=== PATIENT | female | born 1960 | race Hispanic/Latino ===

== ENCOUNTER 2017-09-17 07:51 | Day surgery (SDC) | payer OTHER ==
[~2017-09-17 07:51] MED LIST: ANCEF/STERILE WATER 2 GM/20 ML IV NR; LACTATED RINGERS 1,000 ML IV SCH; VERSED IV NR
[2017-09-17] MEDS ORDERED: NACL BACTERIOSTATIC INFILTRATI ONE (09:16)
--- NOTE | 2017-09-17 09:27 | Anesthesia Consultation ---
Anesthesia Consult and Med Hx Date of service: 09/17/17 - Airway Anesthetic Teeth Evaluation: Good ROM Head & Neck: Inadequate (hardware in the cervical region) Mental/Hyoid Distance: Adequate Mallampati Class: Class II Intubation Access Assessment: Possibly Difficult - Pulmonary Exam CTA: Yes - Cardiac Exam Cardiac Exam: RRR - Pre-Operative Health Status ASA Pre-Surgery Classification: ASA3 Proposed Anesthetic Plan: General - Pulmonary Hx Smoking: No Hx Asthma: Yes (INHALER PRN- RARE USE) Hx Sleep Apnea: No (IRIS PRE SCREEN LOW RISK) - Cardiovascular System Hx Hypertension: Yes (X 7 YRS) - Central Nervous System Hx Seizures: Yes (LAST SEIZURE 2016 , NO MEDS-STATES DUE TO ANXIETY) 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
[2017-09-17] MEDS ORDERED: XYLOCAINE 1% 20 mL INFILTRATI NR (09:30)
[2017-09-17] MEDS ORDERED: MARCAINE 0.5% 30 ML INFILTRATI ONE ×2 (09:42→10:46)
[2017-09-17] MEDS ORDERED: DECADRON ONE ×3 (09:42→13:02)
[2017-09-17] MEDS ORDERED: SUBLIMAZE IV NR (10:00)
[2017-09-17] MEDS ORDERED: ZOFRAN IV PRN (10:00)
[2017-09-17] MEDS ORDERED: MARCAINE 0.5% INFILTRATI NR (10:00)
[2017-09-17] MEDS ORDERED: NACL P/F VIAL (10 ML) INFILTRATI NR (10:00)
[2017-09-17] MEDS ORDERED: PERCOCET 5/325 PO PRN (10:00)
[2017-09-17] MEDS ORDERED: SUBLIMAZE IV PRN (10:00)
[2017-09-17] MEDS ORDERED: XYLOCAINE MPF 2% ONE (10:46)
[2017-09-17] MEDS ORDERED: DIPRIVAN 10 MG/ML IV ONE (10:46)
--- NOTE | 2017-09-17 11:33 | Anesthesia Day of Surgery ---
Anesthesia Day of Surgery - Day of Surgery Patient Examined: Yes Patient H&P Reviewed: Yes Patient is NPO: Yes
[2017-09-17] MEDS ORDERED: ADRENALIN IV ONE (11:41)
[2017-09-17] MEDS ORDERED: DILAUDID ONE ×2 (11:58→13:09)
[2017-09-17] MEDS ORDERED: ePHEDrine SULFATE ONE (12:10)
--- NOTE | 2017-09-17 12:57 | Short Stay Summary ---
Short Stay Documentation Date of service: 09/17/17 - History H&P: obtained from office - Allergies and Medications Current Medications: Allergies ketorolac tromethamine [From Toradol] Allergy (Verified 09/13/17 17:02) Seizure Home Medications Medication Instructions Recorded Confirmed Last Taken Type methylPREDNISolone [Medrol Dose 4 mg PO DAILY 6 Days tab 06/28/14 09/17/17 22:00 Rx Shawn] AtorvaSTATin [Lipitor] 20 mg PO QHS 09/13/17 09/17/17 09/16/17 22:00 History Estrogen,Con/M-Progest Acet 1 each PO DAILY 09/13/17 09/17/17 09/16/17 22:00 History [Prempro 0.625-2.5 mg Tablet] Gabapentin [Neurontin] 300 mg PO TID 09/13/17 09/17/17 09/16/17 22:00 History HYDROcodone/APAP 5-325 [[place] 1 each PO Q6HR PRN 09/13/17 09/17/17 09/15/17 History 5/325] Lisinopril/Hydrochlorothiazide 1 each PO DAILY 09/13/17 09/17/17 09/17/17 06:45 History [Zestoretic 10-12.5 mg Tablet] Melatonin 10 mg PO QHS 09/13/17 09/17/17 09/16/17 History Ondansetron [Zofran TAB] 4 mg PO Q8HR PRN 09/13/17 09/17/17 09/16/17 11:00 History Active Medications Bupivacaine HCl (Marcaine 0.5%) 20 ml INFILTRATI PREOP NR Stop: 09/17/17 16:00 Cefazolin Sodium (Ancef/Sterile Water 2 Gm/20 Ml) 2 gm IV PREOP NR Stop: 09/17/17 23:59 Fentanyl (Sublimaze) 50 mcg IV Q5MIN PRN PRN Reason: Pain , Severe (7-10) Stop: 09/17/17 16:00 Hydromorphone HCl (Dilaudid) 0.5 mg IV Q10MIN PRN PRN Reason: Pain , Severe (7-10) Stop: 09/17/17 15:00 Lactated Ringer's (Lactated Ringers) 1,000 mls @ 100 mls/hr IV DIRECT MICHAEL Last Admin: 09/17/17 09:35 Dose: 100 mls/hr Lidocaine (Xylocaine 1% 20 Ml) 10 ml INFILTRATI PREOP NR Stop: 09/17/17 13:30 Midazolam HCl (Versed) 2 mg IV PREOP NR Stop: 09/17/17 23:59 Last Admin: 09/17/17 09:45 Dose: 2 mg Ondansetron HCl (Zofran) 4 mg IV ONCE PRN PRN Reason: Nausea And Vomiting Stop: 09/17/17 14:00 Oxycodone/Acetaminophen (Percocet 5/325) 1 tab PO ONCE PRN PRN Reason: Pain, Moderate (4-6) Stop: 09/17/17 14:00 Sodium Chloride (Nacl P/F Vial (10 Ml)) 1 ml INFILTRATI PREOP NR Stop: 09/17/17 14:00 - Brief post op/procedure progress note Date of procedure: 09/17/17 Pre-op diagnosis: persistent right shoulder pain, acromioclavicular joint arthritis, rotator Post-op diagnosis: other (persistent right shoulder pain, acromioclavicular joint arthritis, full thickness rotator cuff tear, extensive subacromial bursitis, degenerative wear of the anterior and superior labrum) Procedure: right shoulder arthroscopy subacromial decompression, distal clavicle excision, debriedement of extensive subacromial bursitis, debriedement of degenerative wear of the anterior and superior labrum, arthroscopic rotator cuff repair Anesthesia: GETA Findings: as above Surgeon: FABIÁN DUEÑAS Estimated blood loss: minimal Pathology: none Condition: stable - Hospital course Hospital course: no perioperative complications - Disposition Condition at discharge: Good Disposition: DC-01 TO HOME OR SELFCARE Short Stay Discharge Plan Follow up with: ESTRELLA LOPEZ MD [Primary Care Provider] - 7 Days
[2017-09-17] MEDS ORDERED: ZOFRAN ONE (13:02)
[2017-09-17] MEDS ORDERED: NEO SYNEPHRINE/NS Syringe(OR USE) IV ONE (13:02)
[2017-09-17] MEDS ORDERED: SUBLIMAZE ONE (13:16)
[2017-09-17] MEDS: DILAUDID IV PRN ×2 (13:35→13:45)
[2017-09-17] MEDS ORDERED: DILAUDID IV PRN (13:41)
[2017-09-17] MEDS ORDERED: VALIUM PO ONE (14:00)
[2017-09-17] MEDS ORDERED: VERSED IV NR (14:00)
--- NOTE | 2017-09-17 16:15 | Operative Report ---
PREOPERATIVE DIAGNOSES: Persistent right shoulder pain, acromioclavicular joint arthritis, partial thickness rotator cuff tear. POSTOPERATIVE DIAGNOSES: Persistent right shoulder pain, advanced acromioclavicular joint arthritic change with a type 2 acromion causing severe impingement upon the rotator cuff, full thickness tearing of the supraspinatus as well as a portion of the infraspinatus tendons degenerative wear of the anterior and superior labrum, extensive subacromial bursitis. OPERATIVE PROCEDURE: Right shoulder arthroscopy, subacromial decompression, distal clavicle excision, debridement of extensive subacromial bursitis, debridement of degenerative wear of the anterior and superior labrum. Arthroscopic repair of a full thickness rotator cuff tear involving the supraspinatus as well as infraspinatus tendons. SURGEON: John Mukherjee M.D. LOSS PREVENTION OFFICER: None. ANESTHESIA: General plus interscalene block to the operative right upper extremity. PREOPERATIVE ANTIBIOTICS: Ancef 2 grams IV within 1 hour of skin incision. DVT PROPHYLAXIS: Open toe thigh high compression stockings and SCD pumps to bilateral lower extremities. OPERATIVE INSTRUMENTATION: Three metallic Opus rotator cuff anchors with corresponding #2 Cobraided sutures. OPERATIVE COMPLICATIONS: None. OPERATIVE HISTORY AND PHYSICAL: This is a 57-year-old female who is right-hand dominant, who has had persistent progressively worsening right shoulder pain for approximately 5-6 months' time. The pain is markedly limiting her day-to-day activities and has failed to improve despite extensive nonoperative treatment. MRI scan was performed, which was positive for acromioclavicular joint arthritis as well as a large partial thickness rotator cuff tear. The patient's MRI findings and diagnosis were discussed at length and after making sure the patient understood that diagnosis and all her questions were answered, we then discussed treatment alternatives of surgical and nonsurgical including risks and benefits of both. After a long lengthy discussion, the patient opted to proceed with operative intervention. This would entail a right shoulder arthroscopy, subacromial decompression, possible rotator cuff repair and surgery as indicated. The risks of which were discussed to include but not exclusive of infection, blood loss, nerve damage, loss of range of motion and persistent pain. Again, the patient understood all of her questions answered. She wished to proceed with operative intervention. DESCRIPTION OF PROCEDURE: The patient was seen in the preoperative holding room area at which point informed consent was reviewed and the appropriate right upper extremity was identified and then marked. Anesthesia then performed an interscalene block in the right upper extremity after confirmation of adequate analgesia, the right upper extremity. The patient was then brought back to the operating room and placed supine on a standard operating room table at which point, general anesthesia was administered and an LMA tube was inserted after confirmation of adequate general anesthesia and checking appropriate placement of the LMA tube. We then made sure that all bony prominences were well padded that there were no wrinkles in the compression stockings on bilateral lower extremities and SCD pumps were applied to bilateral lower extremities. The patient was then sat up in the beach chair position using the beach chair positioner, which was already in place and her head was secured in a nice neutral position. The well left arm was secured in neutral position at the patient's side with the aid of the well arm sanchez. A pillow was placed beneath the posterior aspect of bilateral thighs, placed in slight flexion at the hips and knees making sure the popliteal fossa was free and clear. The right upper extremity was then examined under anesthesia. The patient was seen to have full range of motion and there was no evidence of instability. Following the examination under anesthesia, the right upper extremity was then prepped and draped in the usual sterile fashion. After prepping and draping, a timeout was called. The right upper extremity was identified which again had been marked in the preoperative holding area. We began the procedure by first making a standard posterior portal with a #15 blade. Once the portals were established, the cannula with the blunt trocar was inserted into the intra-articular aspect of the glenohumeral joint at this point without difficulty or damage to articular cartilage. Once in place, the arthroscopic camera immediately placed in the anterior aspect of the shoulder joint where we established an anterior portal by first inserting 18 gauge spinal needle under direct arthroscopic visualization. Once confirmed to be in appropriate position, an 18-gauge needle was then inserted between the subscap and biceps tendons under direct arthroscopic visualization. Once confirmed to be in appropriate position, a 15 blade was then used to establish the anterior portal. Once the portal was established, the blunt trocar was inserted to widen the portal site for an arthroscopic probe. We began a diagnostic arthroscopy, anterior aspect of shoulder joint. The patient seemed to have a normal subscapularis tendon without any tears or instability when probed. Inspection of the anterior and superior labrum showed there to be some mild to moderate degenerative wear, which was gently debrided using 4.0 meniscal shaving and getting down to a nice smooth stable healthy remaining border. There was normal articular cartilage of the glenohumeral joint. There was a normal bare area without a Hill-Sachs lesion. There was a normal posterior labrum which was seen to be stable when probed. Arthroscopic camera was then placed in axillary recess, we saw there were no loose bodies present. Inspection of the biceps tendon showed to be intact and actually shoulder in its normal relation. Inspection of the rotator cuff itself showed to be full thickness tearing of both the supraspinatus with a small portion of the infraspinatus tendons. The fibrinous atrophic edges of which were gently debrided using the 4.0 meniscal shaver. The arthroscopic pump was then turned off making sure there was good hemostasis. Once this was confirmed, the arthroscopic camera was then removed from the glenohumeral joint and then placed in subacromial space. Once in the subacromial space, we saw there was severe extensive subacromial bursitis. A third incision made in the lateral aspect of the shoulder in line with the distal clavicle from the axillary nerve and from there, we debrided the extensive subacromial bursitis using 4.0 meniscal shaver and hemostasis was achieved with the Arthrocare ablation wand. Once this was completed, the arm was placed to full range of motion and we saw there was severe impingement of the rotator cuff on the undersurface of the acromion and the distal clavicle. We then removed the soft tissue from the undersurface acromion using the Arthrocare ablation wand and then using the 4.0 hooded barrel bur carried out a subacromial decompression in standard fashion from inferior to superior, posterior and anterior making sure not to leave any residual anterior hook. Once this was completed, we turned our attention to the distal clavicle which was also seen to be arthritic. Using a 4.0 hooded barrel bur, we carried out distal clavicle excision to a depth of approximately 6 mm. Once completed, the arm was again placed through a full range of motion under direct arthroscopic visualization. We saw there was no further impingement of the rotator cuff upon the undersurface of the acromion over the distal clavicle, we then turned our attention to the rotator cuff tear. The atrophic fibrinous edge, which was debrided down to healthy tissue using a series of basket punches and a 4.0 meniscal shaver. Then, using a series of rasps and the 4.0 meniscal shaver, we debrided the soft tissue from the rotator cuff footprint. Once this was completed, we then sequentially passed a three #2 Cobraided sutures in a horizontal mattress type fashion using the open suture passer and once this was completed, we then tapped by hand and then inserted three metallic Opus rotator cuff anchors using these anatomic repair, the rotator cuff backed down to the rotator cuff footprint. Once this was completed, the repair was probed and seemed to be stable. The arm was also placed a full range of motion and the repair was seen to be stable. There was also no further impingement with rotator cuff undersurface of the acromion throughout a full arc of motion. Arthroscopic pump was then turned off and she was good hemostasis. Once this was confirmed, the extraneous fluid was suctioned from the subacromial space using arthroscopic cannula. Following this, all the arthroscopic instrumentation was removed. The 3 portal sites were closed with 3-0 nylon in simple fashion. Adaptic, 4 x 4, ABD, Primapore dressing was applied. The patient was then sat down to the beach chair in the supine position, was awakened from general anesthesia without complications, then taken to recovery room in stable condition. Standard postoperative orders were written. JOB# [id number] PEDRO/LOUIS
[2017-09-17 17:36] VITALS: BP 110/70
--- NOTE | 2017-09-17 18:35 | Post Anesthesia Evaluation ---
- Post Anesthesia Evaluation Patient Participated: Yes Airway Patent: Yes Stable Respiratory Function: Yes Nausea/Vomiting: No Temp > 96.8F: Yes Pain Manageable: Yes Adequeate Hydration: Yes Anesthesia Complications: No Block Receding Appropriately: Yes Patient on Ventilator: No
== END 2017-09-17 15:48 | disposition home or self-care (01) ==
LOC: OR 07:51
PROVIDERS: ATTEND Orthopaedic Surgery
DX: S46.011A Strain of muscle(s) and tendon(s) of the rotator cuff of right shoulder, initial encounter (principal); M19.011 Primary osteoarthritis, right shoulder; M75.41 Impingement syndrome of right shoulder; I10 Essential (primary) hypertension; J45.909 Unspecified asthma, uncomplicated; F41.0 Panic disorder [episodic paroxysmal anxiety]; Z88.8 Allergy status to other drugs, medicaments and biological substances; X58.XXXA Exposure to other specified factors, initial encounter; Y93.89 Activity, other specified; Y92.89 Other specified places as the place of occurrence of the external cause; Y99.8 Other external cause status
CPT/HCPCS: 29823; 29826; 29827; C1713; J0171; J0690; J1100; J1170; J2250; J2370; J2405; J2704; J3010; J7120